=== PATIENT | male | born 1990 | race Two or more races ===

== ENCOUNTER 2017-04-18 12:39 | Emergency (ER) | payer SELFPAY ==
[~2017-04-18] VITALS: Ht 165.1 cm; Wt 65.0 kg
[2017-04-18] MEDS ORDERED: PREDNISONE50 MG PO (13:08)
[2017-04-18] MEDS ORDERED: VALTREX50 MG/ML PO (13:08)
[2017-04-18] MEDS ORDERED: AKWA TEARS OIN3.5 GM BOTH EYES (13:08)
[2017-04-18 13:14] VITALS: BP 140/94
== END 2017-04-18 14:14 | disposition home or self-care (01) ==
LOC: EME 12:39
DX: G51.0 Bell's palsy (principal); Z87.891 Personal history of nicotine dependence
CPT/HCPCS: 99281; 99284; J7512